=== PATIENT | male | born 1980 | race Caucasian/White ===

== ENCOUNTER 2017-11-19 05:45 | Day surgery (SDC) | payer OTHER, SELFPAY ==
[2017-11-19] VITALS (8 sets, daily range): BP systolic 116–125; BP diastolic 73–81; PULSE 63–80; RESP 14–16; TEMP 35.9–36.7; O2SAT 97–100; BMI 25.6
[2017-11-19] MEDS: Bupivacaine Mpf 0.5% 30 ML VIAL (06:51)
[2017-11-19] MEDS: Cefazolin 2 GM in 0.9% Normal Saline 100 ML IV (07:14)
--- NOTE | 2017-11-19 07:15 | HERN_PTH ---
PATIENT: ELIZABETH BARBA LOC: [facility] – [place] U#:[id number] AGE/SX: 37/M ROOM: RE11/19/[address]: Dr. Ollie Miller MD : [id number] BED: DIS: 11/19/2017 SPEC #: [id number] RECD: 11/19/17 10:08 STATUS: CAROLYN SPAULDINGSamuel #: [id number] MARGARITA: 11/19/17 07:[address]: Ollie Miller DEPT: SURGICAL PATHOLOGY RECD BY: Ollie Chamberlain ENTERED: 11/19/17 12:51 SP TYPE: Hernia OTHR DR: Dr. Wei Tatum MD Tissues: HERNIA Procedures: Surgery Specimen Level II HEADER OPERATION: Laparoscopic right inguinal hernia repair with mesh PRE-OP DIAGNOSIS: Recurrent right inguinal hernia, umbilical hernia with obstruction, without gangrene TISSUE SUBMITTED: Umbilical hernia sac MICROSCOPIC DIAGNOSIS Umbilical hernia sac: A piece of fibroadipose tissue, fibroconnective tissue, consistent with hernia sac with focal congestion and hemorrhage. A minute benign lymph node tissue. MICA:ro 11/20/17 MICROSCOPIC DESCRIPTION Slides are reviewed. GROSS DESCRIPTION Received in fixative is one container labeled with the patient's name and designated umbilical hernia sac. The specimen consists of an irregular piece of yellow adipose tissue measuring 3 x 2.5 x 1.5 cm. Sections do not reveal any mass lesion. Fire Watcher sections are submitted in one cassette. / MICA:ro 11/19/17 TC:5 CPT: 23689
--- NOTE | 2017-11-19 09:02 | PCM.OPRPT ---
Report of Operation Date of Procedure: 11/19/17 Pre-Operative Diagnosis: umbilical and recurrent right inguinal hernia Surgery/Procedure Performed:: umbilical and recurrent right direct inguinal hernia Description of Surgical Findings:: laparoscopic right inguinal and laparoscopic umbilical hernia repairs with mesh u.s. revenue officer: None Type of Anesthesia:: General Anesthesiologist: Teo Mirza - ASA2 Specimen's removed: umbilical hernia sac Drains: mora - 100cc Estimated Blood Loss (mL): <25 Fluids Replaced: 1000 Description of Procedure: The patient was brought to the operating suite. Sign in was performed verifying patient, site, procedure, position, and DVT prophylaxis with SCDs. Patient received 2 g Ancef antibiotic prophylaxis. Following induction of general anesthetic, a mora catheter was placed. The patients abdomen was prepped and draped in the usual fashion. Timeout was performed verifying patient, site, position. Local anesthetic was injected below the umbilicus. Incision made and dissection carried down to the umbilical root fascia. 2 stay sutures were placed. Incision made in the fascia, the peritoneum entered under direct visualization. A 10 mm Madrid trocar was inserted and secured with the stay sutures. Pneumoperitoneum to 15 mmHg was insufflated. Visual inspection revealed direct right inguinal hernia and no left inguinal hernias. The patient had a small approximately 1 cm umbilical hernia present additionally . 2 5mm ports were placed in the standard position. The peritoneum was incised and prepared and the dissection was carried out along the space down to the preperitoneal space of the inguinal canal. Dissection was carried down identifying the pubic tubercle, Coopers ligament, the inferior epigastric vessels, and lateral dissection. A right direct defect was noted Following this, a Bard 3-D Max mesh was placed in the right inguinal space. This was secured with a pro-tack tacker along Coopers ligament. The mesh was then further secured over the transversus arch using a secure strap absorbable tacker. Following this, the peritoneum was closed with a running 3-0V lock suture sewn laparoscopically. following this, the umbilical hernia sac was dissected free from the umbilical skin. This was sent to pathology. A 6.4 cm Ethicon comanche mesh was then placed into the abdominal cavity. This was secured with transfixing 0 Prolene sutures using a granee needle. The 2 tails were cut and then secured to the anterior fascia. Next, the inner rim of the fascial defect was secured to the mesh with interrupted 0 Prolene sutures 5 ports were removed under direct visualization with no signs of bleeding. Pneumoperitoneum was released. The Madrid trocar was removed. The umbilical fascial suture was secured and the skin was closed with interrupted 4-0 Monocryl subcuticular sutures. Steri-Strips and bandages were applied. The patient was brought to recovery room in stable condition. Proceed ventral path PVPM (6.4cm) Lot - [id number] 03/28/2019 Grafts/Implants Used: Bard 3DMax right large - Ref [id number] exp 03/25/2021 Proceed v - Admit VTE Documentation VTE Present on Admission: No VTE Mechan Device Prophylaxis: SCD's
--- NOTE | 2017-11-19 09:07 | OP.PCM_ITS ---
Report of Operation Date of Procedure: 11/19/17 Pre-Operative Diagnosis: umbilical and recurrent right inguinal hernia Surgery/Procedure Performed:: umbilical and recurrent right direct inguinal hernia Description of Surgical Findings:: laparoscopic right inguinal and laparoscopic umbilical hernia repairs with mesh assistant paralegal: None Type of Anesthesia:: General Anesthesiologist: Teo Mirza - ASA2 Specimen's removed: umbilical hernia sac Drains: mora - 100cc Estimated Blood Loss (mL): <25 Fluids Replaced: 1000 Description of Procedure: The patient was brought to the operating suite. Sign in was performed verifying patient, site, procedure, position, and DVT prophylaxis with SCDs. Patient received 2 g Ancef antibiotic prophylaxis. Following induction of general anesthetic, a mora catheter was placed. The patient?s abdomen was prepped and draped in the usual fashion. Timeout was performed verifying patient, site, position. Local anesthetic was injected below the umbilicus. Incision made and dissection carried down to the umbilical root fascia. 2 stay sutures were placed. Incision made in the fascia, the peritoneum entered under direct visualization. A 10 mm Madrid trocar was inserted and secured with the stay sutures. Pneumoperitoneum to 15 mmHg was insufflated. Visual inspection revealed direct right inguinal hernia and no left inguinal hernias. The patient had a small approximately 1 cm umbilical hernia present additionally . 2 5mm ports were placed in the standard position. The peritoneum was incised and prepared and the dissection was carried out along the space down to the preperitoneal space of the inguinal canal. Dissection was carried down identifying the pubic tubercle, Tad?s ligament, the inferior epigastric vessels, and lateral dissection. A right direct defect was noted Following this, a Bard 3-D Max mesh was placed in the right inguinal space. This was secured with a pro-tack tacker along Tad?s ligament. The mesh was then further secured over the transversus arch using a secure strap absorbable tacker. Following this, the peritoneum was closed with a running 3-0V lock suture sewn laparoscopically. following this, the umbilical hernia sac was dissected free from the umbilical skin. This was sent to pathology. A 6.4 cm Ethicon chickaloon mesh was then placed into the abdominal cavity. This was secured with transfixing 0 Prolene sutures using a granee needle. The 2 tails were cut and then secured to the anterior fascia. Next, the inner rim of the fascial defect was secured to the mesh with interrupted 0 Prolene sutures 5 ports were removed under direct visualization with no signs of bleeding. Pneumoperitoneum was released. The Madrid trocar was removed. The umbilical fascial suture was secured and the skin was closed with interrupted 4-0 Monocryl subcuticular sutures. Steri-Strips and bandages were applied. The patient was brought to recovery room in stable condition. Proceed ventral path PVPM (6.4cm) Lot - [id number] exp 03/28/2019 Grafts/Implants Used: Bard 3DMax right large - Ref [id number] exp Proceed v - Admit VTE Documentation VTE Present on Admission: No VTE Mechan Device Prophylaxis: SCD's
--- NOTE | 2017-11-19 09:08 | PCM.DC.HER ---
Discharge Diet: Light diet - advance as tolerated Discharge Activity: Return to Normal Activity, May Drive - when you are no longer taking narcotic pain medications., May Shower - with the bandage in place 1-2 days after surgery. Lifting Restrictions: 20 pounds for 8 weeks. Additional Activity Instructions:: Climbing stairs is fine, walking is encouraged. Sitting in bed may be uncomfortable. Sitting up using your lateral muscles (sitting up sideways) is usually more comfortable. Do not drive, work heavy equipment of sign legal documents for 24 hours. If your hernia repair was an ingunial repair, you may have scrotal swelling, an ice pack and/or athletic support can provide more comfort. Pain medications may cause nausea, you should typically eat light foods as you take your pain medications. Pain medications may also cause constipation. If you have difficulty with this, discuss with your doctor. Call your doctor if your incision/area has: Continuous Slow Oozing, Sudden Increased Bleeding, Increased Pain/ Swelling, Increased Redness, Foul Smelling Discharge Call your doctor if you observe: Fever of 101 or Higher Suture Line Care: Avoid Pulling/Pushing, Avoid Pinching/Bending Additional Dressing/Incision Instructions:: Leave the operative bandage on for 2-3 days. When you remove the bandage, leave the steri-strips on place until your follow up appointment or they fall off. Allergies/Adverse Reactions: Allergies adhesive tape Adverse Reaction (Verified 11/12/17 15:17) Rash Medications to take at Discharge Ibuprofen 400 mg PO DAILY 11/12/17 Reliv 1 packet PO DAILY 11/12/17 Oxycodone HCl/Acetaminophen [Percocet 5/325] 1 tab PO Q4H PRN PRN #14 tab 11/19/17 The following prescriptions were given: Oxycodone HCl/Acetaminophen [Percocet 5/325] 1 tab PO Q4H PRN PRN #14 tab PRN Reason: Pain Primary Care Physician: Wei Tatum MD [Primary Care Provider] - Please Follow Up With: Ollie Miller MD - [phone] When: Plan to have a follow up appointment in 7 days. Call to schedule.
[2017-11-19] MEDS: oxyCODONE 5 MG Tablet PO (11:00)
== END 2017-11-19 13:00 | disposition home or self-care (01) ==
LOC: SDC 05:46 → AC 05:48
PROVIDERS: Family Provider Family Medicine; PCP Family Medicine; Visit Provider Surgery
PROC: (CPT 49650; principal; 2017-11-19 06:55)
DX: K40.91 Unilateral inguinal hernia, without obstruction or gangrene, recurrent (principal); K42.0 Umbilical hernia with obstruction, without gangrene
CPT/HCPCS: 00840; 49651; 49653; 88302; J7120; J2405

== ENCOUNTER → 2025-04-29 | Outpatient (CLI) | payer OTHER, SELFPAY ==
--- NOTE | 2025-04-29 07:54 | CT_ITS ---
PROCEDURE: EXTREMITY LOWER WITHOUT CONTRA 04/29/2025 REASON FOR EXAM: PRIMARY OSTEOARTHRITIS, LEFT ANKLE AND FOOT TECHNIQUE: EXTREMITY LOWER WITHOUT CONTRA Coronal and Sagittal reconstruction series were provided. CONTRAST: None One or more dose reduction techniques were used (e.g., Automated exposure control, adjustment of the mA and/or kV according to patient size, use of iterative reconstruction technique). RADIATION DOSE SUMMARY: DLP: 656.95 mGycm COMPARISON: None FINDINGS: Bones: There is a 1.0 x 0.9 by 1.0 cm developing osteochondral defect in the superolateral talar dome with no free fragment. There is subcortical cyst formation in the medial talus. There is subcortical cyst formation in the proximal cuboid. There are multiple corticated osteochondral fragments in the medial compartment with the largest measuring 0.8 cm. No acute fracture or dislocation is identified. The tibiofibular articulation is aligned. The ankle mortise is not widened. Soft Tissues: The distal Achilles and plantar fascia origins appear intact. There is no visible radiopaque foreign body. There is no visible soft tissue mass or cyst. CT/Extremity Lower without Contra IMPRESSION: There is a 1.0 x 0.9 by 1.0 cm developing osteochondral defect in the superolat eral talar dome with no free fragment. There is subcortical cyst formation in the medial talus. There is subcortical c yst formation in the proximal cuboid. There are multiple corticated osteochondral fragments in the medial compartment with the largest measuring 0.8 cm. Reading Location: [facility]
--- NOTE | 2025-04-29 10:22 | NEURO_ITS ---
NCS and/or EMG Patient Report Ordering Doctor: Juarez Buenrostro DATE OF SERVICE: 04/29/25 Sarwat presents with complaints of an intermittent shocking sensation in the lateral aspect of the left leg. Electrodiagnostic findings: Left peroneal motor nerve demonstrates normal distal latency, amplitude and conduction velocity. Right peroneal motor response within normal limits. Tibial motor response within normal limits bilaterally. Borderline prolonged left tibial and right peroneal F?wave. H reflex within nor mal limits bilaterally. Prolonged right lateral plantar latency. Needle EMG testing was performed in the lower limbs. 1+ fibrillations were noted in the left lower lumbar paraspinals, left tibialis anterior and left semitendinosis. All muscles tested showed no evidence of denervation with normal motor unit action potentials Electrodiagnostic impression: This is an abnormal study. 1. Electrodiagnostic findings suggestive of an acute left L5 radiculopathy. Consider clinical correlation with lumbar spine imaging to evaluate for possible disc herniation or stenosis. Multi Select Codes Neurology Neurology Interp Codes: 24583-91 Musc test done w/n test comp (interp) (2) and 28906-06 Nrv cndj test 11-12 studies (interp)
== END | disposition home or self-care (01) ==
PROVIDERS: Visit Provider Podiatrist
DX: R20.2 Paresthesia of skin (principal); M19.072 Primary osteoarthritis, left ankle and foot
CPT/HCPCS: 73700; 95886; 95913